=== PATIENT | male | born 1950 | race Caucasian/White ===

== ENCOUNTER 2020-03-13 17:40 | Emergency (ER) | payer OTHER, SELFPAY ==
--- NOTE | ~2020-03-13 | US_ITS ---
EXAMINATION: US venous doppler [facility] DATE: 03/13/2020 18:11 INDICATION: Left lower limb swelling TECHNIQUE: Govea scale images without and with compression and Doppler images of the left lower extrem ity veins were obtained. COMPARISON: None FINDINGS: The left common femoral vein, profunda femoral vein, femoral vein, popliteal vein, peroneal trunk, posterior tibial veins, and greater saphenous vein are patent. IMPRESSION: 1. Patent left lower extremity veins. No evidence of deep venous thrombosis. Reviewed, dictated and finalized at location A. DREN'S MINISTRY DIRECTOR
--- NOTE | ~2020-03-13 | XR_ITS ---
EXAMINATION: XR knee LT 3V DATE: 03/13/2020 18:59 INDICATION: Knee pain after fall TECHNIQUE: Three views of the left knee were obtained. COMPARISON: None. FINDINGS: Alignment is normal. No fracture or osteochondral lesion. There is moderate osteoarthritis of the lateral compartment. A moderate size joint effusion is present. Soft tissues are unremarkable. IMPRESSION: 1. Osteoarthritis and moderate size joint effusion without acute osseous abnormality. Reviewed, dictated and finalized at location A. RDS MANAGEMENT ASSOCIATE IMPRESSION: 1. Osteoarthritis and moderate size joint effusion without acute osseous abnorm ality.
[2020-03-13 18:00] VITALS: BP 156/88; PULSE 94; RESP 16; TEMP 36.3; O2SAT 98
--- NOTE | 2020-03-13 18:25 | ED.LOWEXIN ---
HPI - Extremity Injury (Lower) General Chief Complaint: Extremity Injury, Lower Stated Complaint: left lower leg swelling Time Seen by Provider: 03/13/20 17:57 Source: patient Mode of arrival: ambulatory Limitations: no limitations History of Present Illness HPI Narrative: Patient 69 years old white male presents with wound and swelling of left lower leg. Patient had a fall 6 days ago, somehow scraped left lower leg anteriorly on the steps causing skin avulsion. Patient been using Neosporin since. Patient complaining that his left lower leg is getting more swollen lately. Patient denies a history of diabetes, fever, chills, nausea, vomiting, chest pain or trouble breathing. Related Data Allergies Allergy/AdvReac Type Severity Reaction Status Date / Time No Known Allergies Allergy Verified 03/13/20 18:02 Review of Systems Review of Systems: Narrative: CONSTITUTIONAL: Denies fever, chills, or sweats. EYES: Denies visual changes, redness, or discharge. ENT: Denies rhinorrhea, congestion, sore throat, or otalgia. CARDIOVASCULAR: Denies chest pain, palpitations, or edema. RESPIRATORY: Denies cough or dyspnea. GASTROINTESTINAL: Denies abdominal pain, nausea, vomiting, or diarrhea. GENITOURINARY: Denies dysuria or hematuria. SKIN: Denies rash or itching. MUSCULOSKELETAL: Denies back pain, joint pain, or myalgia. NEUROLOGIC: Denies headache, numbness, or weakness. PSYCHIATRIC: Denies anxiety or depression. PMFSH Social History Social History Gender identity (if verbalized by the patient): Male Exam Narrative: Exam Narrative: General appearance: Well-developed, well-nourished Skin: Normal color. Left lower leg showed 2+ edema up to the skin avulsion at the mid leg anteriorly, 4 cm skin avulsion, no surrounding erythema, no discharge, right lower leg showed 1+ edema Head: Normocephalic, nontraumatic Chest and respiratory: Airway patent, no respiratory distress, no accessory muscle use Heart: Regular rate/rhythm Vascular: Normal peripheral pulses, normal capillary refill. Musculoskeletal: Normal range of motion, nontender back Neurologic: Alert and oriented ?3, TIG WELDER is normal as tested, no gross motor deficit Course Course Emergency Course: Stable Vital Signs Vital signs: Vital Signs Temperature 36.3 C L 03/13/20 18:00 Pulse Rate 94 03/13/20 18:00 Respiratory Rate 16 03/13/20 18:00 Blood Pressure 156/88 H 03/13/20 18:00 Pulse Oximetry 98 03/13/20 18:00 Temperature 36.3 C L 03/13/20 18:00 Pulse Rate 94 03/13/20 18:00 Respiratory Rate 16 03/13/20 18:00 Blood Pressure 156/88 H 03/13/20 18:00 Pulse Oximetry 98 03/13/20 18:00 MDM - Extremity Injury (Lower) MDM Narrative Medical decision making narrative: Left lower leg contusion, bruises, skin avulsion. Differential Diagnosis Differential diagnosis: Likely other (Contusion, bruises, skin avulsion, leg edema) Imaging Data Radiologist's impression: Impressions Venous Doppler Study 03/13/20 18:25 IMPRESSION: 1. Patent left lower extremity veins. No evidence of deep venous thrombosis. Knee X-Ray 03/13/20 19:31 IMPRESSION: 1. Osteoarthritis and moderate size joint effusion without acute osseous abnormality. Critical Care Time Critical Care Time Critical Care Time: No Discharge Plan Discharge Clinical Impression: Contusion of left leg Qualifiers: Encounter type: sequela Qualified Code(s): S80.12XS - Contusion of left lower leg, sequela Avulsion of skin of left lower leg Qualifiers: Encounter type: initial encounter Qualified Code(s): S81.802A - Unspecified open wo
== END 2020-03-13 19:55 | disposition home or self-care (01) ==
PROVIDERS: Emergency Provider Emergency Medicine; PCP Physician Assistant
DX: S81.802A Unspecified open wound, left lower leg, initial encounter (principal); S80.12XA Contusion of left lower leg, initial encounter; W19.XXXA Unspecified fall, initial encounter
CPT/HCPCS: 73562; 93971; 99284

== ENCOUNTER 2020-04-26 16:48 | Outpatient (CLI) | payer OTHER, SELFPAY | END 2020-04-26 16:49 | disposition home or self-care (01) | LOC: ANHCOVIDVC 16:48 | PROVIDERS: PCP Physician Assistant | DX: Z23 Encounter for immunization (principal) | CPT/HCPCS: 0001A; 91300 ==

== ENCOUNTER 2020-05-17 16:46 | Outpatient (CLI) | payer OTHER, SELFPAY | END 2020-05-17 16:47 | disposition home or self-care (01) | LOC: ANHCOVIDVC 16:46 | PROVIDERS: PCP Physician Assistant | DX: Z23 Encounter for immunization (principal) | CPT/HCPCS: 0002A; 91300 ==